=== PATIENT | male | born 1990 | race Two or more races ===

== ENCOUNTER 2020-05-17 04:02 | Inpatient (IN) | payer MEDICAID ==
[~2020-05-17] VITALS: Ht 167.6 cm; Wt 81.6 kg
[2020-05-17] VITALS (8 sets, daily range): BP systolic 99–143; BP diastolic 40–95
--- NOTE | 2020-05-17 04:20 | NUR ---
ED Nurse Note: Patient presents to ED with abdominal pain onset around 0200 today. He states ab pain is aching in nature, nonradiating. He notes he did eat Au[employer] and pain started shortly after. No N/V/D. No urinary symptoms. AAOX4. Breathing is normal.
--- NOTE | 2020-05-17 04:37 | Emergency Room Report ---
History of Present Illness General Chief Complaint: Abdominal Pain Source: Patient Present Illness HPI 30-year-old male with no past medical history. He presents with chief plaint abdominal pain. Onset was around 2 and half hours ago. Pain is sharp and crampy in nature. 9 out of 10. No radiation. No nausea or vomiting. No diarrhea. No fever chills. Never had this problem before. Nothing made it better. Nothing made it worse. 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 COVID-19 Screening: Negative COVID-19 Patient History Past Medical History: see triage record, old chart reviewed Past Surgical History: none Pertinent Family History: none Social History: Denies: smoking Immunizations: other Reviewed Nursing Documentation: PMH: Agreed; PSxH: Agreed Nursing Documentation-PMH Past Medical History: No Stated History Review of Systems Eye: Denies: eye pain, blurred vision ENT: Denies: ear pain, nose congestion, throat swelling Respiratory: Denies: cough, shortness of breath Cardiovascular: Denies: chest pain, palpitations Gastrointestinal: Reports: abdominal pain; Denies: diarrhea, vomiting Musculoskeletal: Denies: back pain, joint pain Skin: Denies: rash Neurological: Denies: headache, numbness Endocrine: Denies: increased thirst, increased urine Hematologic/Lymphatic: Denies: easy bruising All Other Systems: negative except mentioned in HPI Physical Exam Vital Signs Date Time Temp Pulse Resp B/P (MAP) Pulse Ox O2 Delivery O2 Flow Rate FiO2 05/17/20 04:14 98.6 116 20 137/77 (97) 98 Room Air Vitals with tachycardia Sp02 EP Interpretation: reviewed, normal General Appearance: well appearing, no apparent distress, alert Head: normocephalic, atraumatic Eyes: bilateral eye PERRL, bilateral eye EOMI ENT: hearing grossly normal, normal pharynx Neck: full range of motion, supple, no meningismus Respiratory: chest non-tender, lungs clear, normal breath sounds Cardiovascular #1: regular rate, rhythm, no murmur Gastrointestinal: no mass, no organomegaly, no bruit, non-distended, abnormal bowel sounds - hyperactive, tenderness - Diffuse Musculoskeletal: back normal, normal range of motion, gait/station normal Psychiatric: mood/affect normal Medical Decision Making Diagnostic Impression: Primary Impression: Abdominal pain Qualified Codes: R10.84 - Generalized abdominal pain Additional Impression: Enterocolitis ER Course Patient presents with abdominal pain. CT scan is pending. I will sign this out to the oncoming doctor. If unremarkable, can be discharged home. CT/MRI/US Diagnostic Results CT/MRI/US Diagnostic Results : Imaging Test Ordered: CT abdomen pelvis Impression Read by radiologist. Findings c/w enterocolitis. Last Vital Signs Date Time Temp Pulse Resp B/P (MAP) Pulse Ox O2 Delivery O2 Flow Rate FiO2 05/17/20 04:14 98.6 116 20 137/77 (97) 98 Room Air Status: improved Disposition: ADMITTED INPATIENT Condition: Serious Scripts No Active Prescriptions or Reported Meds Liborio Mccann MD May 17, 2020 04:37
[2020-05-17] MEDS ORDERED: HYDROmorphone 1mg/ml Carpuject IVP ONE ×2 (04:45→05:45)
[2020-05-17 05:39] LABS: BASOPHILS % (AUTO) 0.4 % (0.0-2.0); EOSINOPHILS % (AUTO) 1.3 % (0.0-3.0); HEMATOCRIT 47.4 % (42.0-52.0); HEMOGLOBIN 15.1 G/DL (14.2-18.0); LYMPHOCYTES % (AUTO) 5.9 % (20.0-45.0); MEAN CORPUSCULAR VOLUME 87 FL (80-99); MONOCYTES % (AUTO) 8.5 % (1.0-10.0); NEUTROPHILS % (AUTO) 83.8 % (45.0-75.0); PLATELET COUNT 219 K/UL (150-450); RED BLOOD COUNT 5.46 M/UL (4.70-6.10); RED CELL DISTRIBUTION WIDTH 12.6 % (11.6-14.8); WHITE BLOOD COUNT 9.9 K/UL (4.8-10.8)
--- NOTE | 2020-05-17 05:41 | NUR ---
ED Nurse Note: Patient still having 9/10 ab pain. MATTD made aware.
[2020-05-17 05:59] LABS: ANION GAP 3 mmol/L (5-15); BLOOD UREA NITROGEN 14 mg/dL (7-18); CALCIUM 8.4 MG/DL (8.5-10.1); CARBON DIOXIDE 30 MMOL/L (21-32); CHLORIDE 104 MMOL/L (98-107); POTASSIUM 3.5 MMOL/L (3.5-5.1); SODIUM 137 MMOL/L (136-145)
[2020-05-17 06:04] LABS: ALANINE AMINOTRANSFERASE 37 U/L (12-78); ALBUMIN 3.9 G/DL (3.4-5.0); ALBUMIN/GLOBULIN RATIO 1.1 (1.0-2.7); ALKALINE PHOSPHATASE 77 U/L (46-116); ASPARTATE AMINO TRANSFERASE 24 U/L (15-37); BILIRUBIN,TOTAL 0.3 MG/DL (0.2-1.0)
--- NOTE | 2020-05-17 06:20 | NUR ---
ED Nurse Note: Patient had episode of vomiting. made aware.
--- NOTE | 2020-05-17 06:34 | Diagnostic Imaging Report ---
EXAM: CT Abdomen and Pelvis Without Intravenous Contrast CLINICAL HISTORY: ABD PAIN TECHNIQUE: Axial computed tomography images of the abdomen and pelvis without intravenous contrast. CTDI is 10.60 mGy and DLP is 591.60 mGy-cm. One or more of the following dose reduction techniques were used: automated exposure control, adjustment of the mA and/or kV according to patient size, use of iterative reconstruction technique. COMPARISON: No relevant prior studies available. FINDINGS: Lung bases: Probable mild post-aspiration changes seen in the lower lobes. No pleural effusions or basilar airspace consolidation. ABDOMEN: Liver: Unremarkable. Gallbladder and bile ducts: Unremarkable. No calcified stones. No ductal dilation. Pancreas: Unremarkable. No ductal dilation. Spleen: Unremarkable. No splenomegaly. Adrenals: Unremarkable. No mass. Kidneys and ureters: Unremarkable. No obstructing stones. No hydronephrosis. Stomach and bowel: No evidence of bowel obstruction. No definite bowel wall thickening. Liquid stool within the colon likely associated with infectious/inflammatory enterocolitis. PELVIS: Appendix: No findings to suggest acute appendicitis. Bladder: Unremarkable. No stones. Reproductive: Unremarkable as visualized. ABDOMEN and PELVIS: Intraperitoneal space: Unremarkable. No free air. No significant fluid collection. Bones/joints: No acute fracture. No dislocation. Soft tissues: Unremarkable. Vasculature: Unremarkable. No abdominal aortic aneurysm. Lymph nodes: Unremarkable. No enlarged lymph nodes. IMPRESSION: Findings suggestive of a low-grade infectious/inflammatory enterocolitis. Normal appendix.
--- NOTE | 2020-05-17 06:45 | Emergency Room Report ---
Physical Exam Vital Signs Date Time Temp Pulse Resp B/P (MAP) Pulse Ox O2 Delivery O2 Flow Rate FiO2 05/17/20 04:14 98.6 116 20 137/77 (97) 98 Room Air Sp02 EP Interpretation: reviewed, normal Medical Decision Making Diagnostic Impression: Primary Impression: Abdominal pain Qualified Codes: R10.84 - Generalized abdominal pain Additional Impressions: Enterocolitis Fever Marijuana abuse ER Course I, Dr Tamara Rivera, have assumed care of the patient. Initial workup, history, and physical performed by previous provider has been reviewed by myself and I have performed my own physical exam of the patient. Briefly, patient is a 30-year-old male with no prior medical history presents with diffuse abdominal pain. On evaluation, patient is now febrile, tachycardiac. He is persistently complaining of abdominal pain and GI discomf ort despite several rounds of Dilaudid. He continues to be persistently tachycardic despite fluid bolus. He has vomitted twice in ED since my arrival despite multiple antiemetics. CT scan of the abdomen shows enteric colitis. No actue surgical pathology --(No appendicitis, diverticulitis or perforation). Patient is unable to tolerate p.o. food and fluid. CXR is unremarkable Labs are otherwise unremarkable. He denies respiratory complaints consistent with Covid pneumonia. Patient was medicated with Cipro and Flagyl broad-spectrum antibiotics. He will be given the full NS 30 cc/kg bolus. Blood cultures and urine cultures are pending. I spoke with Dr. Jasso, and reviewed the patients presentation, workup, results, and treatment. They will admit the patient for further care and evaluation, and assume care of the patient at this time. Rhythm Strip Diag. Results Rhythm Strip Time: 07:05 EP Interpretation: yes Rate: 110 Rhythm: no PVC's, no ectopy, other - sinus tachycardia Chest X-Ray Diagnostic Results Chest X-Ray Diagnostic Results : SATHISH Toscanoibe Text Chest X-Ray: Views: 1 view(s) Indication: fever Findings: Normal heart size. Mediastinum normal. No infiltrate. Impression: NAD The X-ray(s) were independently viewed and interpreted contemporaneously Electronically signed by me, Tamara Rivera, DO CT/MRI/US Diagnostic Results CT/MRI/US Diagnostic Results : Impression CT Abdomen and Pelvis Without Intravenous Contrast FINDINGS: Lung bases: Probable mild post-aspiration changes seen in the lower lobes. No pleural effusions or basilar airspace consolidation. ABDOMEN: Liver: Unremarkable. Gallbladder and bile ducts: Unremarkable. No calcified stones. No ductal dilation. Pancreas: Unremarkable. No ductal dilation. Spleen: Unremarkable. No splenomegaly. Adrenals: Unremarkable. No mass. Kidneys and ureters: Unremarkable. No obstructing stones. No hydronephrosis. Stomach and bowel: No evidence of bowel obstruction. No definite bowel wall thickening. Liquid stool within the colon likely associated with infectious/inflammatory enterocolitis. PELVIS: Appendix: No findings to suggest acute appendicitis. Bladder: Unremarkable. No stones. Reproductive: Unremarkable as visualized. ABDOMEN and PELVIS: Intraperitoneal space: Unremarkable. No free air. No significant fluid collection. Bones/joints: No acute fracture. No dislocation. Soft tissues: Unremarkable. Vasculature: Unremarkable. No abdominal aortic aneurysm. Lymph nodes: Unremarkable. No enlarged lymph nodes. IMPRESSION: Findings suggestive of a low-grade infectious/inflammatory enterocolitis. Normal appendix. Reevaluation Time: 06:45 Last Vital Signs Date Time Temp Pulse Resp B/P (MAP) Pulse Ox O2 Delivery O2 Flow Rate FiO2 05/17/20 05:46 98.6 113 24 143/83 100 Room Air Status: worsened Disposition: ADMITTED INPATIENT Admit Decision Time: 06:45 Condition: Stable Referrals: NOT CHOSEN IPA/,REFERRING (PCP) Tamara Rivera D.O. May 17, 2020 06:45
[2020-05-17 07:07] LABS: APPEARANCE,URINE CLEAR; BILIRUBIN, URINE NEGATIVE (NEGATIVE); COLOR,URINE PALE YELLOW; GLUCOSE, URINE (UA) NEGATIVE (NEGATIVE); KETONES,URINE NEGATIVE (NEGATIVE); LEUKOCYTE ESTERASE ,URINE 1+ (NEGATIVE); NITRITE,URINE NEGATIVE (NEGATIVE); PH,URINE 7 (4.5-8.0); PROTEIN,URINE NEGATIVE (NEGATIVE); UROBILINOGEN,URINE NORMAL MG/DL (0.0-1.0)
[2020-05-17] MEDS ORDERED: DiphenhydrAMINE 50mg/ml Inj IVP ONE (07:15)
[2020-05-17] MEDS ORDERED: Metoclopramide 10mg/2ml Inj IVP ONE (07:15)
--- NOTE | 2020-05-17 07:20 | NUR ---
HAND-OFF: Report given to ASHLEY Amaral.
--- NOTE | 2020-05-17 08:57 | NUR ---
ED Nurse Note: Report given to Nataliia RAMIREZ of Med Surg unit.
--- NOTE | 2020-05-17 09:30 | NUR ---
NURSE NOTES: Pt came up to unit via gurney in stable condition and w/all belongings accounted for. Pt A&Ox4; pt has a fever of 102.4 F; tachycardic; but in no apparent distress. IV site intact/asymptomatic & skin intact. Pt denies any pain and/or N/V at this time. Will obtain admission orders and continue to monitor.
--- NOTE | 2020-05-17 10:36 | History and Physical ---
History of Present Illness General Date patient seen: May 17, 2020 Time patient seen: 09:45 Reason for Hospitalization: Abdominal Pain Present Illness HPI 30 years old male with no significant past medical history , presented to emergency room for evaluation due to diffuse abdominal pain. Pain reported as sharp and crampy , 9 out of 10 , without radiation. Pain started after he ate food at [employer] and fell asleep. He woke up with severe abdominal pain as described above; no nausea. He did vomited undigested food x1. No blood in emesis. No diarrhea. No fever or chills. Upon evaluation patient was tachycardic with heart rate 116 . otherwise vital signs were stable. Laboratory work-up revealed no leukocytosis , stable hemoglobin, hematocrit, and platelet count ; stable electrolytes . Lactic acid 1.6. Urine toxicology screen was positive for marijuana . Urinalysis was negative for [facility]. CT scan of the abdomen and pelvis revealed low-grade infectious/inflammatory enterocolitis ; normal appendix. In emergency department patient received IV fluids , empiric antibiotic, analgesic antiemetic and admitted to medical surgical floor for further management. This am denies abdominal pain, n/v/diarrhea. Temp 102, tachy PMH: none Past surgery: surgery for fining broken collar bone Socia; history: denies ETOH abuse ( socially only), no illicit drug use, + smoking marijuana/ Works in [employer] Family history: noncontributory Allergy: none medications: none at home Allergies: Coded Allergies: No Known Allergies (Unverified , 05/17/20) COVID-19 Screening Contact w/high risk pt: No Experienced COVID-19 symptoms?: No Patient History Healthcare decision maker Resuscitation status Full code Advanced Directive on File Review of Systems Constitutional: Reports: weakness Eye: Reports: no symptoms ENT: Reports: no symptoms Respiratory: Reports: no symptoms Cardiovascular: Reports: no symptoms Gastrointestinal: Reports: see HPI Genitourinary: Reports: no symptoms Musculoskeletal: Reports: no symptoms Skin: Reports: no symptoms Psychiatric: Reports: no symptoms Neurological: Reports: no symptoms Endocrine: Reports: no symptoms Hematologic/Lymphatic: Reports: no symptoms Physical Exam General Appearance: WD/WN, no apparent distress, alert Lines, tubes and drains: peripheral HEENT: normocephalic, atraumatic, anicteric Neck: supple Respiratory/Chest: lungs clear, no respiratory distress, no accessory muscle use Cardiovascular/Chest: normal peripheral pulses, tachycardia Abdomen: normal bowel sounds, non tender, soft Extremities: normal range of motion, non-tender, no calf tenderness, normal capillary refill Skin Exam: warm/dry, other - multiple tattoos Neurologic: knowledge architect II-XII grossly normal, no motor/sensory deficits, alert, oriented x 3 Musculoskeletal: normal muscle bulk Last 24 Hour Vital Signs Date Time Temp Pulse Resp B/P (MAP) Pulse Ox O2 Delivery O2 Flow Rate FiO2 05/17/20 09:15 102.4 122 22 115/75 (88) 96 05/17/20 08:57 101.6 123 18 128/92 99 Room Air 05/17/20 08:36 101.6 121 20 131/95 98 Room Air 05/17/20 07:43 101.6 05/17/20 06:40 102.0 132 24 121/87 100 Room Air 05/17/20 05:46 98.6 113 24 143/83 100 Room Air 05/17/20 05:16 98.6 05/17/20 04:20 116 20 Room Air 05/17/20 04:20 98.6 116 20 137/77 98 Room Air 05/17/20 04:14 98.6 116 20 137/77 (97) 98 Room Air Laboratory Tests Test 05/17/20 04:40 05/17/20 06:45 05/17/20 07:19 White Blood Count 9.9 K/UL (4.8-10.8) Red Blood Count 5.46 M/UL (4.70-6.10) Hemoglobin 15.1 G/DL (14.2-18.0) Hematocrit 47.4 % (42.0-52.0) Mean Corpuscular Volume 87 FL (80-99) Mean Corpuscular Hemoglobin 27.6 PG (27.0-31.0) Mean Corpuscular Hemoglobin Concent 31.8 G/DL (32.0-36.0) L Red Cell Distribution Width 12.6 % (11.6-14.8) Platelet Count 219 K/UL (150-450) Mean Platelet Volume 6.5 FL (6.5-10.1) Neutrophils (%) (Auto) 83.8 % (45.0-75.0) H Lymphocytes (%) (Auto) 5.9 % (20.0-45.0) L Monocytes (%) (Auto) 8.5 % (1.0-10.0) Eosinophils (%) (Auto) 1.3 % (0.0-3.0) Basophils (%) (Auto) 0.4 % (0.0-2.0) Sodium Level 137 MMOL/L (136-145) Potassium Level 3.5 MMOL/L (3.5-5.1) Chloride Level 104 MMOL/L (98-107) Carbon Dioxide Level 30 MMOL/L (21-32) Anion Gap 3 mmol/L (5-15) L Blood Urea Nitrogen 14 mg/dL (7-18) Creatinine 1.0 MG/DL (0.55-1.30) Estimat Glomerular Filtration Rate > 60 mL/min (>60) Glucose Level 98 MG/DL (74-106) Calcium Level 8.4 MG/DL (8.5-10.1) L Total Bilirubin 0.3 MG/DL (0.2-1.0) Aspartate Amino Transf (AST/SGOT) 24 U/L (15-37) Alanine Aminotransferase (ALT/SGPT) 37 U/L (12-78) Alkaline Phosphatase 77 U/L (46-116) Total Protein 7.4 G/DL (6.4-8.2) Albumin 3.9 G/DL (3.4-5.0) Globulin 3.5 g/dL Albumin/Globulin Ratio 1.1 (1.0-2.7) Lipase 207 U/L (73-393) Urine Color Pale yellow Urine Appearance Clear Urine pH 7 (4.5-8.0) Urine Specific [place] 1.005 (1.005-1.035) Urine Protein Negative (NEGATIVE) Urine Glucose (UA) Negative (NEGATIVE) Urine Ketones Negative (NEGATIVE) Urine Blood Negative (NEGATIVE) Urine Nitrite Negative (NEGATIVE) Urine Bilirubin Negative (NEGATIVE) Urine Urobilinogen Normal MG/DL (0.0-1.0) Urine Leukocyte Esterase 1+ (NEGATIVE) H Urine RBC 0 /HPF (0 - 0) Urine WBC 0-2 /HPF (0 - 0) Urine Squamous Epithelial Cells Occasional /LPF Urine Bacteria None /HPF (NONE) Urine Opiates Screen Negative (NEGATIVE) Urine Barbiturates Screen Negative (NEGATIVE) Phencyclidine (PCP) Screen Negative (NEGATIVE) Urine Amphetamines Screen Negative (NEGATIVE) Urine Benzodiazepines Screen Negative (NEGATIVE) Urine Cocaine Screen Negative (NEGATIVE) Urine Marijuana (THC) Screen Positive (NEGATIVE) H Lactic Acid Level 1.60 mmol/L (0.4-2.0) Height (Feet): 5 Height (Inches): 6.00 Weight (Pounds): 180 Medications Current Medications Medications (Trade) Dose Ordered Sig/Cristopher Route PRN Reason Start Time Stop Time Status Last Admin Dose Admin Acetaminophen (Tylenol) 650 mg Q4H PRN ORAL Temp > 101/Mild pain 05/17/20 10:00 06/16/20 09:59 Assessment/Plan Assessment/Plan: ASSESSMENT SIRS, possible sepsis Enterocolitis/gastroenteritis ( likely due to food poisoning corresponds with onset of symptoms) Abdominal pain with vomiting due to enterocolitis Mild dehydration Marijuana user PLAN OF CARE MS floor IVF d5/12 NS at 100 start CL and will advance as tolerated pain management a/emetic antipruritic doubt infectious process, likely viral , but will start empiric Zosyn for now fup with BCX doubt marijuana as a contributing factor, since more abdominal pain; emesis only x1 GI eval GI prophylaxis supportive care will need COVID testing prior to dc for his work case discussed and evaluated by supervising physician Annalisa Brambila NP May 17, 2020 10:36
[2020-05-17] MEDS ORDERED: Morphine Sulfate 2mg/ml Inj(IV/IM USE ONLY) IVP PRN (10:45)
--- NOTE | 2020-05-17 11:13 | General Progress Note ---
Subjective ROS Limited/Unobtainable: Yes Allergies: Coded Allergies: No Known Allergies (Unverified , 05/17/20) Objective Last 24 Hour Vital Signs Date Time Temp Pulse Resp B/P (MAP) Pulse Ox O2 Delivery O2 Flow Rate FiO2 05/17/20 09:15 102.4 122 22 115/75 (88) 96 05/17/20 08:57 101.6 123 18 128/92 99 Room Air 05/17/20 08:36 101.6 121 20 131/95 98 Room Air 05/17/20 07:43 101.6 05/17/20 06:40 102.0 132 24 121/87 100 Room Air 05/17/20 05:46 98.6 113 24 143/83 100 Room Air 05/17/20 05:16 98.6 05/17/20 04:20 116 20 Room Air 05/17/20 04:20 98.6 116 20 137/77 98 Room Air 05/17/20 04:14 98.6 116 20 137/77 (97) 98 Room Air Laboratory Tests 05/17/20 04:40: White Blood Count 9.9, Red Blood Count 5.46, Hemoglobin 15.1, Hematocrit 47.4, Mean Corpuscular Volume 87, Mean Corpuscular Hemoglobin 27.6, Mean Corpuscular Hemoglobin Concent 31.8L, Red Cell Distribution Width 12.6, Platelet Count 219, Mean Platelet Volume 6.5, Neutrophils (%) (Auto) 83.8H, Lymphocytes (%) (Auto) 5.9L, Monocytes (%) (Auto) 8.5, Eosinophils (%) (Auto) 1.3, Basophils (%) (Auto) 0.4, Sodium Level 137, Potassium Level 3.5, Chloride Level 104, Carbon Dioxide Level 30, Anion Gap 3L, Blood Urea Nitrogen 14, Creatinine 1.0, Estimat Glomerular Filtration Rate > 60, Glucose Level 98, Calcium Level 8.4L, Total Bilirubin 0.3, Aspartate Amino Transf (AST/SGOT) 24, Alanine Aminotransferase (ALT/SGPT) 37, Alkaline Phosphatase 77, Total Protein 7.4, Albumin 3.9, Globulin 3.5, Albumin/Globulin Ratio 1.1, Lipase 207 05/17/20 06:45: Urine Color Pale yellow, Urine Appearance Clear, Urine pH 7, Urine Specific [place] 1.005, Urine Protein Negative, Urine Glucose (UA) Negative, Urine Ketones Negative, Urine Blood Negative, Urine Nitrite Negative, Urine Bilirubin Negative, Urine Urobilinogen Normal, Urine Leukocyte Esterase 1+H, Urine RBC 0, Urine WBC 0-2, Urine Squamous Epithelial Cells Occasional, Urine Bacteria None, Urine Opiates Screen Negative, Urine Barbiturates Screen Negative, Phencyclidine (PCP) Screen Negative, Urine Amphetamines Screen Negative, Urine Benzodiazepines Screen Negative, Urine Cocaine Screen Negative, Urine Marijuana (THC) Screen PositiveH 05/17/20 07:19: Lactic Acid Level 1.60 Height (Feet): 5 Height (Inches): 6.00 Weight (Pounds): 180 General Appearance: alert EENT: PERRL/EOMI Neck: supple Cardiovascular: normal rate Respiratory/Chest: lungs clear Abdomen: soft, hypoactive bowel sounds, tender Extremities: non-tender Assessment/Plan Assessment/Plan: Enterocolitis/gastroenteritis ( likely due to food poisoning corresponds with onset of symptoms) Abdominal pain with vomiting due to enterocolitis Mild dehydration Marijuana user CT and labs reviewed ordered stool culture advance diet to low fiber diet Zofran PRN will Godfrey Hong MD May 17, 2020 11:13
[2020-05-17] MEDS: Potassium Chloride 10 MEQ in D5 1/2NS 1,000 ML IV SCH ×2 (12:01→21:43)
--- NOTE | 2020-05-17 13:39 | NUR ---
CASE MANAGEMENT:INITIAL REVIEW 30 YR OLD MALE FROM HOME CC;ABDOMINAL PAIN SI;ENTEROCOLITIS. + THC. 102.4 129 22 99/40 96% ON RA UA+ LEUKOCYTE ESTERASE URINE TOX + THC ABD/PELVIS CT ~ Findings suggestive of a low-grade infectious/inflammatory enterocolitis. IS; ZOFRAN IV X2 DILAUDID IV IVF NS BOLUS X2 FLAGYL IV CIPROFLOXACIN IV REGLAN IV BENADRYL IV ADMITTED TO MED SURG MED SURG STATUS DCP;FROM HOME
[2020-05-17] MEDS: Piperacillin/Tazobactam 3.375 GM in NS 110 ML IVPB SCH ×2 (15:04→21:44)
[2020-05-17] MEDS: HYDROcodone/Acetamin 5/325 tab ORAL PRN (16:10)
--- NOTE | 2020-05-17 16:31 | Diagnostic Imaging Report ---
Indication: Cough Technique: One view of the chest Comparison: none Findings: Lungs and pleural spaces are clear. Heart size is normal. Surgical hardware is seen in the left clavicle Impression: No acute process
--- NOTE | 2020-05-17 16:52 | NUR ---
Pt complaining of nausea and abdominal pain. Pt had fever for a couple hours and ER did not perform rapid COVID test for pt. Pt asked the ARCHITECT MANAGER if he could be tested for COVID but she did not place order. Called Dr. Jasso at [phone] and left voicemail for his number [phone]. Pt and staff both concerned to obtain COVID testing.
--- NOTE | 2020-05-17 18:21 | NUR ---
NURSE HAND-OFF: Important Events on Shift:[Pt transferred from ER around 0910. Pt verbalized abd pain, nausea, and had fever above 101 F for a couple hours while on the shift. Administered tylenol around 1030 for fever. Administered norco PO for pain and zofran IV push for nausea, zosyn IV infused as ordered. Collected stool sample and delivered sample to lab. Called Dr. Jasso to request order for COVID testing. Pt and staff concerned that pt has not had rapid test done in ER and having symptoms especially fever over 101 F. Left voicemail for MD and did not receive a call back or any new orders. Patient Status: [] Diet: [] Pending Orders: [] Pending Results/Labs:[] Pending MD notification:[] Latest Vital Signs: Temperature 98.4 , Pulse 90 , B/P 105 /60 , Respiratory Rate 15 , O2 SAT 95 , Room Air, O2 Flow Rate . Vital Sign Comment: [] Latest Leos Fall Score: 35 Fall Risk: Medium Risk Safety Measures: Call light Within Reach, Bed Alarm , Side Rails Side Rails x2, Bed position Low and Locked. Fall Precautions: Report given to [=ASHLEY Hanna.
--- NOTE | 2020-05-17 19:20 | NUR ---
NURSE NOTES: received pt and report from ASHLEY William. pt alert and oriented x 4 with no s/s of acute distress and co pain at the moment. IV site clean dry and intact and running fluid as ordered. Plan of care discussed.
[2020-05-18] VITALS: BP 120/73
[2020-05-18] MEDS: HYDROcodone/Acetamin 5/325 tab ORAL PRN (00:30)
--- NOTE | 2020-05-18 00:30 | NUR ---
NURSE NOTES: pt vital signs stable and shows no s/s of acute distress. pt with co headache 10/31. [place] given, and will reassess. pt ambulates to bathroom and tolerates it well. no co of abdominal pain at the moment. will follow up.
[2020-05-18 03:55] VITALS: BP 116/73
--- NOTE | 2020-05-18 04:25 | NUR ---
NURSE NOTES: pt vitals stable. no co pain at the moment and he is showing no s/s of acute distress. no co N/V as well.
[2020-05-18] MEDS: Piperacillin/Tazobactam 3.375 GM in NS 110 ML IVPB SCH (05:03)
[2020-05-18 06:28] LABS: BASOPHILS % (AUTO) 0.4 % (0.0-2.0); EOSINOPHILS % (AUTO) 2.1 % (0.0-3.0); HEMATOCRIT 42.9 % (42.0-52.0); HEMOGLOBIN 13.6 G/DL (14.2-18.0); LYMPHOCYTES % (AUTO) 14.9 % (20.0-45.0); MEAN CORPUSCULAR VOLUME 86 FL (80-99); MONOCYTES % (AUTO) 13.2 % (1.0-10.0); NEUTROPHILS % (AUTO) 69.5 % (45.0-75.0); PLATELET COUNT 170 K/UL (150-450); RED BLOOD COUNT 4.97 M/UL (4.70-6.10); RED CELL DISTRIBUTION WIDTH 12.7 % (11.6-14.8)
[2020-05-18 06:46] LABS: ALANINE AMINOTRANSFERASE 29 U/L (12-78); ALBUMIN 3.2 G/DL (3.4-5.0); ALBUMIN/GLOBULIN RATIO 0.9 (1.0-2.7); ALKALINE PHOSPHATASE 56 U/L (46-116); ANION GAP 7 mmol/L (5-15); ASPARTATE AMINO TRANSFERASE 23 U/L (15-37); BILIRUBIN,TOTAL 0.3 MG/DL (0.2-1.0); BLOOD UREA NITROGEN 7 mg/dL (7-18); CALCIUM 7.8 MG/DL (8.5-10.1); CARBON DIOXIDE 26 MMOL/L (21-32); CHLORIDE 105 MMOL/L (98-107); POTASSIUM 3.6 MMOL/L (3.5-5.1); SODIUM 138 MMOL/L (136-145)
--- NOTE | 2020-05-18 07:30 | NUR ---
NURSE HAND-OFF: Important Events on Shift:pain managment, antibiotic treatment Patient Status: stable Diet: low residue fiber Pending Orders: na Pending Results/Labs:na Pending MD notification:na Latest Vital Signs: Temperature 99.2 , Pulse 92 , B/P 116 /73 , Respiratory Rate 16 , O2 SAT 96 , Room Air, O2 Flow Rate . Vital Sign Comment: stable through the shift Latest Leos Fall Score: 35 Fall Risk: Medium Risk Safety Measures: Call light Within Reach, Bed Alarm , Side Rails Side Rails x2, Bed position Low and Locked. Fall Precautions: Report given to ASHLEY William.
[2020-05-18 08:00] VITALS: BP 138/81
[2020-05-18] MEDS: Potassium Chloride 10 MEQ in D5 1/2NS 1,000 ML IV SCH (08:12)
--- NOTE | 2020-05-18 10:13 | Pulmonology Progress Note ---
Subjective ROS Limited/Unobtainable: Yes Allergies: Coded Allergies: No Known Allergies (Unverified , 05/17/20) Subjective fevers resolved, no leucocytosis diet advanced, able to tolerate no abd pain, no n/v/ had this am normal BM feels better and stronger Objective Last 24 Hour Vital Signs Date Time Temp Pulse Resp B/P (MAP) Pulse Ox O2 Delivery O2 Flow Rate FiO2 05/18/20 03:55 99.2 92 16 116/73 (87) 96 05/18/20 00:00 99.0 86 15 120/73 (89) 96 05/17/20 20:05 Room Air 05/17/20 20:00 98.4 96 20 127/73 (91) 97 05/17/20 16:00 98.4 90 15 105/60 (75) 95 05/17/20 15:16 Room Air 05/17/20 12:00 101.7 129 22 99/40 (59) 98 05/17/20 11:23 102.4 Intake and Output 05/17/20 05/18/20 19:00 07:00 Intake Total 2200 ml 1900 ml Output Total 700 ml 1500 ml Balance 1500 ml 400 ml Intake Oral 800 ml IV Total 2200 ml 1100 ml Output Urine Total 700 ml 1500 ml # Voids 2 4 # Bowel Movements 1 Objective General Appearance: WD/WN, no apparent distress, alert Lines, tubes and drains: peripheral HEENT: normocephalic, atraumatic, anicteric Neck: supple Respiratory/Chest: lungs clear, no respiratory distress, no accessory muscle use Cardiovascular/Chest: normal peripheral pulses, regualr rate Abdomen: normal bowel sounds, non tender, soft Extremities: normal range of motion, non-tender, no calf tenderness, normal capillary refill Skin Exam: warm/dry, multiple tattoos 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, no motor/sensory deficits, alert, oriented x 3 Musculoskeletal: normal muscle bulk Laboratory Tests 05/18/20 04:50: White Blood Count 6.0, Red Blood Count 4.97, Hemoglobin 13.6L, Hematocrit 42.9, Mean Corpuscular Volume 86, Mean Corpuscular Hemoglobin 27.3, Mean Corpuscular Hemoglobin Concent 31.7L, Red Cell Distribution Width 12.7, Platelet Count 170, Mean Platelet Volume 7.1, Neutrophils (%) (Auto) 69.5, Lymphocytes (%) (Auto) 14.9L, Monocytes (%) (Auto) 13.2H, Eosinophils (%) (Auto) 2.1, Basophils (%) (Auto) 0.4, Sodium Level 138, Potassium Level 3.6, Chloride Level 105, Carbon Dioxide Level 26, Anion Gap 7, Blood Urea Nitrogen 7, Creatinine 1.0, Estimat Glomerular Filtration Rate > 60, Glucose Level 105, Calcium Level 7.8L, Total Bilirubin 0.3, Aspartate Amino Transf (AST/SGOT) 23, Alanine Aminotransferase (ALT/SGPT) 29, Alkaline Phosphatase 56, Total Protein 6.7, Albumin 3.2L, Globulin 3.5, Albumin/Globulin Ratio 0.9L Current Medications Medications (Trade) Dose Ordered Sig/Cristopher Route PRN Reason Start Time Stop Time Status Last Admin Dose Admin Acetaminophen (Tylenol) 650 mg Q4H PRN ORAL Temp > 101/Mild pain 05/17/20 10:00 06/16/20 09:59 05/18/20 08:20 Acetaminophen/ Hydrocodone Bitart ([place] 5/325) 1 tab Q6H PRN ORAL mod pain 4-12/3105/17/20 10:45 05/24/20 10:44 05/18/20 00:30 Dextrose (Dextrose 50%) 25 ml Q30M PRN IV Hypoglycemia 05/17/20 10:30 08/15/20 10:29 Dextrose (Dextrose 50%) 50 ml Q30M PRN IV Hypoglycemia 05/17/20 10:30 08/15/20 10:29 Famotidine (Pepcid) 20 mg BID ORAL 05/17/20 18:00 08/15/20 17:59 05/18/20 08:13 Morphine Sulfate (Morphine Sulfate) 2 mg Q4H PRN IVP severe pain 8-04/0205/17/20 10:45 05/24/20 10:44 Ondansetron HCl (Zofran) 4 mg Q6H PRN IVP Nausea & Vomiting 05/17/20 10:30 06/16/20 10:29 05/17/20 16:11 Piperacillin Sod/ Tazobactam Sod 3.375 gm/Sodium Chloride 110 ml @ 27.5 mls/hr EVERY 8 HOURS IVPB 05/17/20 14:00 05/22/20 13:59 05/18/20 05:03 Potassium Chloride 10 meq/ Dextrose/Sodium Chloride 1,005 ml @ 100 mls/hr Q10H3M IV 05/17/20 12:00 06/16/20 11:59 05/18/20 08:12 Assessment/Plan Assessment/Plan ASSESSMENT SIRS, possible sepsis Enterocolitis/gastroenteritis ( likely due to food poisoning corresponds with onset of symptoms) Abdominal pain with vomiting due to enterocolitis -resolved Mild dehydration Marijuana user PLAN OF CARE MS floor IVF D5/12 NS at 100 diet as tolerated pain management a/emetic doubt infectious process, likely viral , started empiric Zosyn for now fup with BCX doubt marijuana as a contributing factor, since more abdominal pain; emesis only x1 GI eval appreciated GI prophylaxis supportive care will need COVID testing prior to dc for his work dc plan after lunch if tolerates diet and cleared by GI case discussed and evaluated by supervising physician Annalisa Brambila NP May 18, 2020 10:13
[2020-05-18 12:00] VITALS: BP 132/88
--- NOTE | 2020-05-18 12:40 | General Progress Note ---
Subjective ROS Limited/Unobtainable: Yes Allergies: Coded Allergies: No Known Allergies (Unverified , 05/17/20) Objective Last 24 Hour Vital Signs Date Time Temp Pulse Resp B/P (MAP) Pulse Ox O2 Delivery O2 Flow Rate FiO2 05/18/20 09:00 Room Air 05/18/20 08:00 99.0 92 18 138/81 (100) 97 05/18/20 03:55 99.2 92 16 116/73 (87) 96 05/18/20 00:00 99.0 86 15 120/73 (89) 96 05/17/20 20:05 Room Air 05/17/20 20:00 98.4 96 20 127/73 (91) 97 05/17/20 16:00 98.4 90 15 105/60 (75) 95 05/17/20 15:16 Room Air Intake and Output 05/17/20 05/18/20 19:00 07:00 Intake Total 2200 ml 1900 ml Output Total 700 ml 1500 ml Balance 1500 ml 400 ml Intake Oral 800 ml IV Total 2200 ml 1100 ml Output Urine Total 700 ml 1500 ml # Voids 2 4 # Bowel Movements 1 Laboratory Tests 05/18/20 04:50: White Blood Count 6.0, Red Blood Count 4.97, Hemoglobin 13.6L, Hematocrit 42.9, Mean Corpuscular Volume 86, Mean Corpuscular Hemoglobin 27.3, Mean Corpuscular Hemoglobin Concent 31.7L, Red Cell Distribution Width 12.7, Platelet Count 170, Mean Platelet Volume 7.1, Neutrophils (%) (Auto) 69.5, Lymphocytes (%) (Auto) 14.9L, Monocytes (%) (Auto) 13.2H, Eosinophils (%) (Auto) 2.1, Basophils (%) (Auto) 0.4, Sodium Level 138, Potassium Level 3.6, Chloride Level 105, Carbon Dioxide Level 26, Anion Gap 7, Blood Urea Nitrogen 7, Creatinine 1.0, Estimat Glomerular Filtration Rate > 60, Glucose Level 105, Calcium Level 7.8L, Total Bilirubin 0.3, Aspartate Amino Transf (AST/SGOT) 23, Alanine Aminotransferase (ALT/SGPT) 29, Alkaline Phosphatase 56, Total Protein 6.7, Albumin 3.2L, Globulin 3.5, Albumin/Globulin Ratio 0.9L Height (Feet): 5 Height (Inches): 6.00 Weight (Pounds): 180 General Appearance: no apparent distress EENT: normal ENT inspection Neck: supple Cardiovascular: normal rate Respiratory/Chest: decreased breath sounds Abdomen: normal bowel sounds, non tender, soft Extremities: non-tender Assessment/Plan Assessment/Plan: Enterocolitis/gastroenteritis ( likely due to food poisoning corresponds with onset of symptoms) Abdominal pain with vomiting due to enterocolitis Mild dehydration Marijuana user CT and labs reviewed low fiber diet diarrhea has improved Zofran PRN will Godfrey Hong MD May 18, 2020 12:40
[2020-05-18] MEDS ORDERED: NS 275ml ONE (13:39)
[2020-05-18] MEDS ORDERED: Tubing IV Secondary IV ONE (13:39)
--- NOTE | 2020-05-18 13:47 | NUR ---
NURSE NOTES: Pt verbalized understanding of education and paperwork. Pt signed paperwork. IV DC, pt took all his belongings with him.Pt asked if he is contagious, RN verbalized that it is good to keep distance from others in case he might be contagious. Pt ambulated to [facility], RN walked with patient to [facility], and pt went home with chuy.
--- NOTE | 2020-05-20 13:14 | Discharge Summary ---
Discharge Summary Discharge Summary _ DATE OF ADMISSION: 05/17/2020 DATE OF DISCHARGE:05/18/2020 DISCHARGED BY: Dr Farr REASON FOR ADMISSION: 30 years old male with no significant past medical history , presented to emergency room for evaluation due to diffuse abdominal pain. Pain reported as sharp and crampy , 9 out of 10 , without radiation. Pain started after he ate food at [employer] and fell asleep. He woke up with severe abdominal pain as described above; no nausea. He did vomited undigested food x1. No blood in emesis. No diarrhea. No fever or chills. Upon evaluation patient was tachycardic with heart rate 116 . otherwise vital signs were stable. Laboratory work-up revealed no leukocytosis , stable hemoglobin, hematocrit, and platelet count ; stable electrolytes . Lactic acid 1.6. Urine toxicology screen was positive for marijuana . Urinalysis was negative for [facility]. CT scan of the abdomen and pelvis revealed low-grade infectious/inflammatory enterocolitis ; normal appendix. In emergency department patient received IV fluids , empiric antibiotic, analgesic antiemetic and admitted to medical surgical floor for further management. CONSULTANTS: GI specialist nixon [facility] COURSE: Patient admitted to medical surgical floor and started on the IV hydration. GI specialist consulted. Patient started on clear liquid diet. Pain management was addressed. Antiemetic and antipyretic provided as needed. Patient developed fever, no leukocytosis. Patient tarted on empiric Zosyn . Blood culture came back negative . stool culture was negative . Fever shortly resolved. No leukocytosis. Diet was advanced as tolerated , and patient was able to tolerate diet. GI prophylaxis provided. No further emesis or diarrhea. Patient clinically stabilized and was ready for discharge home. Due to rapid and unexpected improvement patient condition patient was discharged in 1 day. FINAL DIAGNOSES: SIRS Possible sepsis Enterocolitis/gastroenteritis- likely due to food poisoning ( corresponding with onset of symptoms) Abdominal pain with vomiting due to enterocolitis- resolved Mild dehydration Marijuana user DISCHARGE MEDICATIONS: See Medication Reconciliation list. DISCHARGE INSTRUCTIONS: Patient was discharged home. Patient was instructed on low fiber diet until all symptoms resolved. Follow-up with a primary care provider in 1 to 2 weeks. Annalisa Brambila NP May 20, 2020 13:14
== END 2020-05-18 13:40 | disposition home or self-care (01) | DRG 720 ==
LOC: EMR 04:43 → 3E 07:52 → EDBEDREQ 08:41
DX: A41.9 Sepsis, unspecified organism (principal); A05.9 Bacterial foodborne intoxication, unspecified; K52.89 Other specified noninfective gastroenteritis and colitis; E86.0 Dehydration; F12.90 Cannabis use, unspecified, uncomplicated
CPT/HCPCS: 36415; 71045; 74176; 80053; 80307; 81003; 83605; 83690; 85025; 87040; 87045; 96361; 96365; 96368; 96375; 96376; 99285; J2405; J2765; J7030